=== PATIENT | male | born 1980 | race Caucasian/White ===

== ENCOUNTER 2016-11-28 20:44 | Emergency (ER) | payer OTHER ==
[~2016-11-28] VITALS: Ht 180.3 cm; Wt 113.4 kg
[~2016-11-28 20:44] MED LIST: LEVO500T59 PO
[2016-11-28 21:19] LABS: BASO # 0.1 x10^3/uL (0.0-0.2); BASO % 1 % (0-3); EOS % 2 % (0-3); HEMATOCRIT 48.8 % (39.0-53.0); LYMPH # 3.2 x10^3/uL (1.0-4.8); LYMPH % 39 % (24-48); MEAN CORPUSCULAR HEMOGLOBIN 30 pg (25-35); MEAN CORPUSCULAR HGB CONC 35 g/dL (31-37); MEAN CORPUSCULAR VOLUME 87 fL (79-100); MONO % 8 % (0-9); NEUT % 50 % (31-73); PLATELET COUNT 225 x10^3/uL (140-400); RED BLOOD COUNT 5.65 x10^6/uL (4.30-5.70); RED CELL DISTRIBUTION WIDTH 12.8 % (11.5-14.5); WHITE BLOOD COUNT 8.1 x10^3/uL (4.0-11.0)
[2016-11-28 21:25] LABS: PROTHROMBIN TIME PATIENT 12.5 SEC (11.7-14.0)
[2016-11-28] MEDS ORDERED: ASPIRIN ENTERIC COATED 325 MG TABLET.DR. PO ONE (21:30)
[2016-11-28] MEDS ORDERED: KETOROLAC 15 MG/ML VIAL. IV ONE (21:30)
[2016-11-28 21:31] LABS: CALCIUM 9.5 mg/dL (8.5-10.1); GFR 83.6; POTASSIUM 3.9 mmol/L (3.5-5.1)
[2016-11-28 21:34] LABS: ALBUMIN 4.1 g/dL (3.4-5.0); MAGNESIUM 2.3 mg/dL (1.8-2.4); TOTAL BILIRUBIN 1.1 mg/dL (0.2-1.0); TOTAL PROTEIN 8.2 g/dL (6.4-8.2)
--- NOTE | 2016-11-28 22:47 | PHYS DOC ---
Past Medical History Past Medical History: Anxiety, Hypertension, Other Additional Past Medical Histor: sleep apnea, gout Past Surgical History: No Surgical History Alcohol Use: None Drug Use: None Adult General Chief Complaint Chief Complaint: CHEST PAIN HPI HPI Patient is a 36 year old male presenting to the emergency department for evaluation of chest pain that started suddenly while he was carrying groceries. He says that it started approximately 45 minutes prior to arrival and now it is resolved and he thinks it lasted approximately 40-45 minutes. He describes the pain is sharp in his left pectoral region and he had some radiation to his left arm that he described as tightness. He said it caused him pain to take a deep breath and he could not take a full breath as he felt short of breath. He denies any nausea vomiting or diaphoresis with the pain. He says that he has hypertension but no diabetes high cholesterol and no smoking. His father had a stroke when he was in his 50s. She denies any prior cardiac risk stratification. His heart score is equal to 1. PERC score = 0. Review of Systems Review of Systems Constitutional: Denies fever or chills [] Eyes: Denies change in visual acuity, redness, or eye pain [] HENT: Denies nasal congestion or sore throat [] Respiratory: Denies cough. + shortness of breath [] Cardiovascular: + CP GI: Denies abdominal pain, nausea, vomiting, bloody stools or diarrhea [] : Denies dysuria or hematuria [] Musculoskeletal: Denies back pain or joint pain [] Integument: Denies rash or skin lesions [] Neurologic: Denies headache, focal weakness or sensory changes [] Current Medications Current Medications Current Medications Medications (Trade) Dose Ordered Sig/Dwight Start Time Stop Time Status Last Admin Dose Admin Aspirin (Ecotrin) 325 mg 1X ONCE 11/28/16 21:30 11/28/16 21:31 DC 11/28/16 21:18 325 MG Ketorolac Tromethamine (Toradol) 15 mg 1X ONCE 11/28/16 21:30 11/28/16 21:31 DC 11/28/16 21:19 15 MG Allergies Allergies Allergies Coded Allergies Type Severity Reaction Last Updated Verified Penicillins Allergy Intermediate 10/05/15 Yes Physical Exam Physical Exam Constitutional: Well developed, well nourished, no acute distress, non-toxic appearance. [] HENT: Normocephalic, atraumatic, bilateral external ears normal, oropharynx moist, no oral exudates, nose normal. [] Eyes: PERRLA, EOMI, conjunctiva normal, no discharge. [] Neck: Normal range of motion, no tenderness, supple, no stridor. [] Cardiovascular:Heart rate regular rhythm, no murmur [] Lungs & Thorax: Bilateral breath sounds clear to auscultation [] Abdomen: Bowel sounds normal, soft, no tenderness, no masses, no pulsatile masses. [] Skin: Warm, dry, no erythema, no rash. [] Back: No tenderness, no CVA tenderness. [] Extremities: No tenderness, no cyanosis, no clubbing, ROM intact, no edema. [] Neurologic: Alert and oriented X 3, normal motor function, normal sensory function, no focal deficits noted. [] Psychologic: Affect normal, judgement normal, mood normal. [] Current Patient Data Vital Signs Vital Signs Date Time Temp Pulse Resp B/P (MAP) Pulse Ox O2 Delivery O2 Flow Rate FiO2 11/28/16 21:21 74 19 149/90 (109) 98 Room Air 11/28/16 20:57 98.2 98.2 Lab Values Laboratory Tests Test 11/28/16 20:55 White Blood Count 8.1 x10^3/uL (4.0-11.0) Red Blood Count 5.65 x10^6/uL (4.30-5.70) Hemoglobin 17.0 g/dL (13.0-17.5) Hematocrit 48.8 % (39.0-53.0) Mean Corpuscular Volume 87 fL (79-100) Mean Corpuscular Hemoglobin 30 pg (25-35) Mean Corpuscular Hemoglobin Concent 35 g/dL (31-37) Red Cell Distribution Width 12.8 % (11.5-14.5) Platelet Count 225 x10^3/uL (140-400) Neutrophils (%) (Auto) 50 % (31-73) Lymphocytes (%) (Auto) 39 % (24-48) Monocytes (%) (Auto) 8 % (0-9) Eosinophils (%) (Auto) 2 % (0-3) Basophils (%) (Auto) 1 % (0-3) Neutrophils # (Auto) 4.1 x10^3uL (1.8-7.7) Lymphocytes # (Auto) 3.2 x10^3/uL (1.0-4.8) Monocytes # (Auto) 0.6 x10^3/uL (0.0-1.1) Eosinophils # (Auto) 0.2 x10^3/uL (0.0-0.7) Basophils # (Auto) 0.1 x10^3/uL (0.0-0.2) Prothrombin Time 12.5 SEC (11.7-14.0) Prothrombin Time INR 1.0 (0.8-1.1) PTT 21 SEC (24-38) L Sodium Level 140 mmol/L (136-145) Potassium Level 3.9 mmol/L (3.5-5.1) Chloride Level 105 mmol/L (98-107) Carbon Dioxide Level 30 mmol/L (21-32) Anion Gap 5 (6-14) L Blood Urea Nitrogen 10 mg/dL (8-26) Creatinine 1.0 mg/dL (0.7-1.3) Estimated GFR (Cockcroft-Gault) 83.6 BUN/Creatinine Ratio 10 (6-20) Glucose Level 103 mg/dL (70-99) H Calcium Level 9.5 mg/dL (8.5-10.1) Magnesium Level 2.3 mg/dL (1.8-2.4) Total Bilirubin 1.1 mg/dL (0.2-1.0) H Aspartate Amino Transferase (AST) 54 U/L (15-37) H Alanine Aminotransferase (ALT) 78 U/L (16-63) H Alkaline Phosphatase 89 U/L (46-116) Troponin I Quantitative < 0.017 ng/mL (0.000-0.055) CY-Mqf-O-Type Natriuretic Peptide 5 pg/mL (0-124) Total Protein 8.2 g/dL (6.4-8.2) Albumin 4.1 g/dL (3.4-5.0) Albumin/Globulin Ratio 1.0 (1.0-1.7) Laboratory Tests 11/28/16 20:55 Laboratory Tests 11/28/16 20:55 EKG EKG Sinus rhythm at 70 bpm with normal axis no obvious ST elevation or depression and normal T waves. Radiology/Procedures Radiology/Procedures Chest x-ray shows normal heart size normal mediastinum and no obvious free air pneumothorax or opacity Course & Med Decision Making Course & Med Decision Making Patient with low heart score given prescription for pain and recommended admission to the hospital. Patient refused stating that he does not want to stay in the hospital. I discussed my reasoning as to why wanted him to stay in the hospital even the limitations of the EKG and troponin in the emergency department especially the time setting. Patient verbalized understanding and accepted the risks of and disability. Patient was willing to compromise with a 3 hour repeat troponin. Repeat troponin is negative and patient has been pain-free since he arrived in the emergency department. He was told not to exert himself take an aspirin daily and to follow with PCP and/or armament installer within 72 hours and come back to the ED with any new worsening pain shortness of breath or other general concerns. Patient aware and agreeable with plan and verbalized understanding of the need for follow-up and strict ED return precautions discussed as above. Dragon Disclaimer Dragon Disclaimer This electronic medical record was generated, in whole or in part, using a voice recognition dictation system. Departure Departure Impression: Primary Impression: Chest pain Disposition: HOME, SELF-CARE Condition: STABLE Referrals: AMY GUILLERMO MD (PCP) SATISH SCHAEFER MD Patient Instructions: Chest Pain (Nonspecific) Additional Instructions: TAKE 81MG ASPIRIN DAILY. DO NOT EXERT YOURSELF UNTIL CLEARED BY PCP OR CARDIOLOGY. FOLLOW WITH PCP OR CARDIOLOGY WITHIN 72 HOURS AND COME BACK TO THE ED SOONER WITH ANY NEW OR WORSENING PAIN, SOA, OR OTHER GENERAL CONCERNS. Problem Qualifiers Primary Impression: Chest pain Chest pain type: unspecified Qualified Codes: R07.9 - Chest pain, unspecified AMY ALCOCER DO Nov 28, 2016 22:47
[2016-11-29 01:25] VITALS: BP 139/73
--- NOTE | 2016-11-29 07:45 | RAD ---
Chest radiograph 11/28/2016 11:06 PM Indication: Left-sided chest pain Comparison: Chest radiograph 05/23/2015 Technique: Single portable upright frontal view of the chest is provided. Findings: Cardiomediastinal silhouette is within normal limits. No pleural effusions, pulmonary vascular congestion or pneumothorax. The lungs are clear. Osseous structures are normal. Impression: No acute cardiopulmonary process.
--- NOTE | 2016-11-29 07:59 | EKG ---
[facility] [address] [place] [address] Test Date: 2016-11-28 Test Time: 20:49:16 Pat Name: NIDA PYLE Department: Room: Gender: M Outsole C[employer] Machine: : 1980 Requested By: AMY ALCOCER Order Number: [id number] Reading MD: Leo Juarez Measurements Intervals [place] Rate: 70 P: 0 VT: 146 QRS: -7 QRSD: 92 T: -11 QT: 380 QTc: 413 Interpretive Statements SINUS RHYTHM Electronically Signed On 12-01-2016 13:10:44 CDT by Leo Juarez
== END 2016-11-29 01:35 | disposition home or self-care (01) ==
LOC: ER 21:52
DX: R07.89 Other chest pain (principal); G47.30 Sleep apnea, unspecified; M10.9 Gout, unspecified; I10 Essential (primary) hypertension; Z88.0 Allergy status to penicillin; Z79.82 Long term (current) use of aspirin
CPT/HCPCS: 36415; 71010; 80053; 83735; 83880; 84484; 85025; 85610; 85730; 93005; 96374; 99285; J1885

== ENCOUNTER 2017-02-08 19:10 | Emergency (ER) | payer OTHER ==
[~2017-02-08] VITALS: Ht 180.3 cm; Wt 113.4 kg
[2017-02-08] MEDS ORDERED: ONDANSETRON PF 4 MG/2 ML VIAL. IV ONE (20:15)
[2017-02-08] MEDS ORDERED: IV NORMAL SALINE 1000ML BAG 1,000 ML IV ONE (20:30)
[2017-02-08] MEDS ORDERED: ONDA4TAB10 SL (20:45)
--- NOTE | 2017-02-08 20:45 | PHYS DOC ---
Past Medical History Past Medical History: Hypertension Additional Past Medical Histor: sleep apnea, gout Past Surgical History: No Surgical History Alcohol Use: None Drug Use: None Adult General Chief Complaint Chief Complaint: FLU SYMPTOM HPI HPI Patient is a 36 year old male who presents with vomiting & diarrhea. The patient reports onset of symptoms this morning with 5 episodes of vomiting & 5 episodes of diarrhea. Reports generalized cramping abdominal pain, inability to tolerate oral intake, generalized weakness. Denies fevers or chills, hematemesis, hematochezia or melena, dysuria or hematuria. Reports exposure to other family members with similar symptoms. Of hypertension, denies abdominal surgeries. PCP is Dr. Singh. Review of Systems Review of Systems Constitutional: Denies fever or chills Eyes: Denies change in visual acuity HENT: Denies nasal congestion or sore throat Respiratory: Denies cough or shortness of breath Cardiovascular: Denies chest pain or edema GI: Reports abdominal pain, nausea, vomiting, & diarrhea, denies bloody stools : Denies dysuria or hematuria Musculoskeletal: Denies back pain or joint pain Integument: Denies rash or skin lesions Neurologic: Denies headache, focal weakness or sensory changes All other systems were reviewed and found to be within normal limits, except as documented in this note. Current Medications Current Medications Current Medications Medications (Trade) Dose Ordered Sig/Dwight Start Time Stop Time Status Last Admin Dose Admin Ondansetron HCl (Zofran) 4 mg 1X ONCE 02/08/17 20:15 02/08/17 20:16 DC 02/08/17 20:18 4 MG Sodium Chloride 1,000 ml @ 1,000 mls/hr 1X ONCE 02/08/17 20:30 02/08/17 21:04 DC 02/08/17 20:10 1,000 MLS/HR Allergies Allergies Allergies Coded Allergies Type Severity Reaction Last Updated Verified Penicillins Allergy Intermediate 10/05/15 Yes Physical Exam Physical Exam Constitutional: Obese, no acute distress, non-toxic appearance. HENT: Normocephalic, atraumatic, bilateral external ears normal, oropharynx moist, nose normal. Eyes: conjunctiva normal, no discharge. Neck: supple, no stridor. Cardiovascular: RRR, no murmurs, no edema. Lungs & Thorax: LCTAB, no wheezing, no respiratory distress. Abdomen: soft, no focal abdominal tenderness with palpation, no rebound or guarding, no masses or pulsatile masses, nondistended. Skin: Warm, dry, no erythema, no rash. Back: No CVA tenderness. Extremities: No tenderness, no edema. Neurologic: Alert and oriented X 3, no focal deficits noted. Psychologic: Affect normal, judgement normal, mood normal. Current Patient Data Vital Signs Vital Signs Date Time Temp Pulse Resp B/P (MAP) Pulse Ox O2 Delivery O2 Flow Rate FiO2 02/08/17 20:56 88 135/65 (88) 93 Room Air 02/08/17 19:56 98.4 18 98.4 Lab Values Laboratory Tests Test 02/08/17 20:13 POC Hemoglobin 18.4 g/dL (14-18) H POC Hematocrit 54 % (37-52) H POC Sodium 143 mmol/L (135-145) POC Potassium 4.0 mmol/L (3.5-5.0) POC Chloride 108 mmol/L (98-110) POC Total CO2 22 mmol/L (23-32) L Anion Gap 18 mmol/L (6-14) H POC Blood Urea Nitrogen 16 mg/dL (8-26) POC Creatinine 1.1 mg/dL (0.5-1.4) Glucose Level 123 mg/dL (70-99) H POC Ionized Calcium (Mode) 1.13 mmol/L (1.13-1.32) Laboratory Tests 02/08/17 20:13 EKG EKG [] Radiology/Procedures Radiology/Procedures [] Course & Med Decision Making Course & Med Decision Making Pertinent Labs and Imaging studies reviewed. (See chart for details) The patient presents with vomiting and diarrhea. Afebrile, no focal abdominal tenderness. Gave IV fluids, Zofran, pain medication. Electrolytes show no significant abnormalities. Recommend rest, hydration with small sips of clear liquid, Zofran as needed for nausea, Tylenol or ibuprofen for pain. Follow-up with primary care physician if not improving in 2-3 days. Return to the emergency department for high fever, severe pain, uncontrolled vomiting, any otherwise worsening condition. Discharged home in stable and improved condition. [] Dragon Disclaimer Dragon Disclaimer This electronic medical record was generated, in whole or in part, using a voice recognition dictation system. Departure Departure Impression: Primary Impression: Vomiting and diarrhea Disposition: HOME, SELF-CARE Condition: STABLE Referrals: AMY SINGH MD (PCP) Patient Instructions: Nausea and Vomiting, [id number] Additional Instructions: You were seen in the emergency department today for vomiting & diarrhea. This is likely caused by a virus & should improve within 2-3 days. Please rest, drink sips of clear liquids such as gatorade, use zofran for nausea & tylenol or ibuprofen for pain/fever. Follow up with primary care in 2-3 days if not improving. Come back for severe pain, uncontrolled vomiting, any otherwise worsening condition. Scripts Ondansetron (ZOFRAN ODT) 4 Mg Tab.rapdis 1 TAB SL Q8HRS Y for NAUSEA/VOMITING, #10 TAB Prov: YISSEL DORANTES MD 02/08/17 YISSEL DORANTES MD Feb 08, 2017 20:45
[2017-02-08 20:56] VITALS: BP 135/65
== END 2017-02-08 21:03 | disposition home or self-care (01) ==
LOC: EDBD 19:10 → ER 19:10
DX: R11.10 Vomiting, unspecified (principal); R19.7 Diarrhea, unspecified; M10.9 Gout, unspecified; I10 Essential (primary) hypertension; G47.30 Sleep apnea, unspecified; Z88.0 Allergy status to penicillin
CPT/HCPCS: 36415; 80047; 85014; 85018; 96361; 96374; 99284; J2405; J7030

== ENCOUNTER 2017-07-18 16:55 | Emergency (ER) | payer OTHER ==
[2017-07-18 17:20] LABS: BILIRUBIN,URINE NEGATIVE (NEG); CLARITY,URINE CLEAR; GLUCOSE,URINE NEGATIVE (NEG); NITRITE,URINE NEGATIVE (NEG); PH,URINE 6.5; PROTEIN,URINE NEGATIVE (NEG-TRACE)
[2017-07-18 17:25] LABS: COLOR,URINE STRAW
[2017-07-18 17:26] LABS: BACTERIA,URINE 0 /HPF (0-FEW); WBC,URINE 0 /HPF (0-4)
[2017-07-18 17:27] LABS: SQUAMOUS EPITHELIAL CELL,UR OCC /LPF
[2017-07-18 17:28] LABS: ADD MAN DIFF? NO
[2017-07-18 17:36] LABS: ANION GAP 12 (6-14); BLOOD UREA NITROGEN 12 mg/dL (8-26); BUN/CREATININE RATIO 11 (6-20); CALCIUM 8.5 mg/dL (8.5-10.1); CARBON DIOXIDE 25 mmol/L (21-32); CHLORIDE 104 mmol/L (98-107); CREATININE 1.1 mg/dL (0.7-1.3); GFR 74.5; GLUCOSE 110 mg/dL (70-99); POTASSIUM 3.6 mmol/L (3.5-5.1); SODIUM 141 mmol/L (136-145)
[2017-07-18] MEDS: ONDANSETRON ODT 4 MG TAB.RAPDIS. PO (17:37)
[2017-07-18] MEDS: KETOROLAC 30 MG/ML INJ. IV (17:37)
[2017-07-18] MEDS: fentaNYL PF VIAL 100 MCG/2 ML VIAL IV (17:38)
[2017-07-18 17:40] LABS: BASO % 1 % (0-3); EOS # 0.1 x10^3/uL (0.0-0.7); EOS % 2 % (0-3); HEMATOCRIT 46.7 % (39.0-53.0); HEMOGLOBIN 16.5 g/dL (13.0-17.5); LYMPH # 1.7 x10^3/uL (1.0-4.8); LYMPH % 33 % (24-48); MEAN CORPUSCULAR HEMOGLOBIN 30 pg (25-35); MEAN CORPUSCULAR HGB CONC 35 g/dL (31-37); MEAN CORPUSCULAR VOLUME 86 fL (79-100); MONO # 0.5 x10^3/uL (0.0-1.1); MONO % 9 % (0-9); NEUT # 2.9 x10^3uL (1.8-7.7); NEUT % 55 % (31-73); PLATELET COUNT 195 x10^3/uL (140-400); RED BLOOD COUNT 5.45 x10^6/uL (4.30-5.70); WHITE BLOOD COUNT 5.2 x10^3/uL (4.0-11.0)
[2017-07-18 17:43] LABS: ALBUMIN 3.9 g/dL (3.4-5.0); ALK PHOS 90 U/L (46-116); ALT (SGPT) 88 U/L (16-63); AST (SGOT) 68 U/L (15-37); LIPASE 164 U/L (73-393); TOTAL BILIRUBIN 1.9 mg/dL (0.2-1.0); TOTAL PROTEIN 7.9 g/dL (6.4-8.2)
== END 2017-07-18 19:22 | disposition home or self-care (01) ==
LOC: ER 16:55
DX: N20.0 Calculus of kidney (principal); M10.9 Gout, unspecified; I10 Essential (primary) hypertension; Z88.0 Allergy status to penicillin
CPT/HCPCS: 36415; 74176; 80053; 81001; 83690; 85025; 96374; 96375; 99285-25; J1885; J3010; Q0162

== ENCOUNTER 2017-12-27 00:53 | Emergency (ER) | payer OTHER ==
[~2017-12-27] VITALS: Ht 180.3 cm; Wt 113.4 kg
[~2017-12-27 00:53] MED LIST changes: +CIPR500T94 PO; +HYDR-971 PO; +ONDA4TAB10 SL; +TAMS0.4C97 PO
[2017-12-27 01:20] LABS: BASO # 0.1 x10^3/uL (0.0-0.2); BASO % 1 % (0-3); EOS # 0.2 x10^3/uL (0.0-0.7); EOS % 2 % (0-3); HEMATOCRIT 48.2 % (39.0-53.0); HEMOGLOBIN 17.7 g/dL (13.0-17.5); LYMPH # 2.3 x10^3/uL (1.0-4.8); LYMPH % 33 % (24-48); MEAN CORPUSCULAR HEMOGLOBIN 32 pg (25-35); MEAN CORPUSCULAR HGB CONC 37 g/dL (31-37); MEAN CORPUSCULAR VOLUME 86 fL (79-100); MONO # 0.7 x10^3/uL (0.0-1.1); MONO % 10 % (0-9); NEUT # 3.7 x10^3uL (1.8-7.7); NEUT % 54 % (31-73); PLATELET COUNT 214 x10^3/uL (140-400); RED CELL DISTRIBUTION WIDTH 12.7 % (11.5-14.5); WHITE BLOOD COUNT 6.9 x10^3/uL (4.0-11.0)
[2017-12-27] MEDS ORDERED: IV NORMAL SALINE 1000ML BAG 1,000 ML IV ONE (01:30)
[2017-12-27] MEDS ORDERED: KETOROLAC 30 MG/ML VIAL. IV ONE (01:30)
[2017-12-27] MEDS ORDERED: ONDANSETRON PF 4 MG/2 ML VIAL. IV ONE (01:30)
[2017-12-27 01:34] LABS: CALCIUM 9.1 mg/dL (8.5-10.1); CREATININE 1.1 mg/dL (0.7-1.3); GFR 74.5; POTASSIUM 3.3 mmol/L (3.5-5.1)
[2017-12-27 01:39] LABS: TOTAL BILIRUBIN 1.3 mg/dL (0.2-1.0); TOTAL PROTEIN 7.9 g/dL (6.4-8.2)
--- NOTE | 2017-12-27 02:07 | PHYS DOC ---
Past Medical History Past Medical History: Hypertension, Other Additional Past Medical Histor: gout Past Surgical History: No Surgical History Alcohol Use: None Drug Use: None Adult General Chief Complaint Chief Complaint: FLANK PAIN HPI HPI Patient is a 37 year old male who presents with acute onset of right flank pain which began at approximately 10:30 this evening. Patient has a previous history of a left-sided kidney stone in July of last year. Patient also had nausea and vomiting associated with this. Review of Systems Review of Systems Constitutional: Denies fever or chills [] Eyes: Denies change in visual acuity, redness, or eye pain [] HENT: Denies nasal congestion or sore throat [] Respiratory: Denies cough or shortness of breath [] Cardiovascular: No additional information not addressed in HPI [] GI: Denies abdominal pain, nausea, vomiting, bloody stools or diarrhea [] : Denies dysuria or hematuria positive for flank pain [] Musculoskeletal: Denies back pain or joint pain [] Integument: Denies rash or skin lesions [] Neurologic: Denies headache, focal weakness or sensory changes [] Endocrine: Denies polyuria or polydipsia [] All other systems were reviewed and found to be within normal limits, except as documented in this note. Current Medications Current Medications Current Medications Medications (Trade) Dose Ordered Sig/[facility] Start Time Stop Time Status Last Admin Dose Admin Ketorolac Tromethamine (Toradol 30mg Vial) 30 mg 1X ONCE 12/27/17 01:30 12/27/17 01:31 DC 12/27/17 01:39 30 MG Ondansetron HCl (Zofran) 4 mg 1X ONCE 12/27/17 01:30 12/27/17 01:31 DC 12/27/17 01:39 4 MG Sodium Chloride 1,000 ml @ 1,000 mls/hr 1X ONCE 12/27/17 01:30 12/27/17 02:29 DC 12/27/17 01:39 1,000 MLS/HR Allergies Allergies Allergies Coded Allergies Type Severity Reaction Last Updated Verified Penicillins Allergy Intermediate 10/05/15 Yes Physical Exam Physical Exam Constitutional: Well developed, well nourished, no acute distress, non-toxic appearance. [] HENT: Normocephalic, atraumatic, bilateral external ears normal, oropharynx moist, no oral exudates, nose normal. [] Eyes: PERRLA, EOMI, conjunctiva normal, no discharge. [] Neck: Normal range of motion, no tenderness, supple, no stridor. [] Cardiovascular:Heart rate regular rhythm, no murmur [] Lungs & Thorax: Bilateral breath sounds clear to auscultation [] Abdomen: Bowel sounds normal, soft, no tenderness, no masses, no pulsatile masses. [] Skin: Warm, dry, no erythema, no rash. [] Back: No tenderness, right sided CVA tenderness. [] Extremities: No tenderness, no cyanosis, no clubbing, ROM intact, no edema. [] Neurologic: Alert and oriented X 3, normal motor function, normal sensory function, no focal deficits noted. [] Psychologic: Affect normal, judgement normal, mood normal. [] Current Patient Data Vital Signs Vital Signs Date Time Temp Pulse Resp B/P (MAP) Pulse Ox O2 Delivery O2 Flow Rate FiO2 12/27/17 01:02 97.9 74 22 143/66 (91) 95 Room Air 97.9 Lab Values Laboratory Tests Test 12/27/17 01:10 12/27/17 02:00 White Blood Count 6.9 x10^3/uL (4.0-11.0) Red Blood Count 5.60 x10^6/uL (4.30-5.70) Hemoglobin 17.7 g/dL (13.0-17.5) H Hematocrit 48.2 % (39.0-53.0) Mean Corpuscular Volume 86 fL (79-100) Mean Corpuscular Hemoglobin 32 pg (25-35) Mean Corpuscular Hemoglobin Concent 37 g/dL (31-37) Red Cell Distribution Width 12.7 % (11.5-14.5) Platelet Count 214 x10^3/uL (140-400) Neutrophils (%) (Auto) 54 % (31-73) Lymphocytes (%) (Auto) 33 % (24-48) Monocytes (%) (Auto) 10 % (0-9) H Eosinophils (%) (Auto) 2 % (0-3) Basophils (%) (Auto) 1 % (0-3) Neutrophils # (Auto) 3.7 x10^3uL (1.8-7.7) Lymphocytes # (Auto) 2.3 x10^3/uL (1.0-4.8) Monocytes # (Auto) 0.7 x10^3/uL (0.0-1.1) Eosinophils # (Auto) 0.2 x10^3/uL (0.0-0.7) Basophils # (Auto) 0.1 x10^3/uL (0.0-0.2) Sodium Level 141 mmol/L (136-145) Potassium Level 3.3 mmol/L (3.5-5.1) L Chloride Level 104 mmol/L (98-107) Carbon Dioxide Level 24 mmol/L (21-32) Anion Gap 13 (6-14) Blood Urea Nitrogen 12 mg/dL (8-26) Creatinine 1.1 mg/dL (0.7-1.3) Estimated GFR (Cockcroft-Gault) 74.5 BUN/Creatinine Ratio 11 (6-20) Glucose Level 139 mg/dL (70-99) H Calcium Level 9.1 mg/dL (8.5-10.1) Total Bilirubin 1.3 mg/dL (0.2-1.0) H Aspartate Amino Transferase (AST) 17 U/L (15-37) Alanine Aminotransferase (ALT) 31 U/L (16-63) Alkaline Phosphatase 85 U/L (46-116) Total Protein 7.9 g/dL (6.4-8.2) Albumin 4.0 g/dL (3.4-5.0) Albumin/Globulin Ratio 1.0 (1.0-1.7) Urine Collection Type Unknown Urine Color Yellow Urine Clarity Clear Urine pH 7.0 Urine Specific [place] 1.015 Urine Protein Negative mg/dL (NEG-TRACE) Urine Glucose (UA) 100 mg/dL (NEG) Urine Ketones (Stick) Negative mg/dL (NEG) Urine Blood Negative (NEG) Urine Nitrite Negative (NEG) Urine Bilirubin Negative (NEG) Urine Urobilinogen Dipstick 0.2 mg/dL (0.2 mg/dL) Urine Leukocyte Esterase Negative (NEG) Urine RBC Occ /HPF (0-2) Urine WBC Occ /HPF (0-4) Urine Squamous Epithelial Cells Few /LPF Urine Bacteria 0 /HPF (0-FEW) Urine Mucus Slight /LPF Laboratory Tests 12/27/17 01:10 Laboratory Tests 12/27/17 01:10 EKG EKG [] Radiology/Procedures Radiology/Procedures [facility] [address] [place] [address] IMAGING REPORT Signed PATIENT: NIDA PYLE ACCOUNT: [id number] : 1980 LOCATION: ER AGE: 37 SEX: M EXAM STATUS: REG ER ORD. PHYSICIAN: RIMA FLORES MD REASON: flank pain, hx of kidney stones PROCEDURE: CT ABDOMEN PELVIS WO CONTRAST EXAM: CT Abdomen and Pelvis without IV contrast CLINICAL HISTORY: right flank pain. COMPARISON: 07/18/2017 TECHNIQUE: Helical CT of the abdomen and pelvis without intravenous contrast. Axial, coronal and sagittal reformatted images were generated. PQRS compliance statement - One or more of the following individualized dose reduction techniques were utilized for this study: 1. Automated exposure control 2. Adjustment of the mA and/or kV according to patient size 3. Use of iterative reconstruction technique FINDINGS: Lack of intravenous contrast limits evaluation of solid organs, vasculature, and lymph nodes. Lower chest: Left lower lobe dependent opacities likely atelectasis. Abdomen and Pelvis: Liver is enlarged measuring about 21.5 cm in length. Relative hepatic hypoattenuation is consistent with hepatic steatosis. Focal fatty sparing in the gallbladder fossa. Spleen is unremarkable. Pancreas is normal. Adrenal glands are unremarkable. The kidneys are normal in size and shape. A punctate right lower pole nonobstructing renal calculus is seen. A punctate right upper pole nonobstructing renal calculus is seen. A punctate left interpolar renal calculus is seen. A 4 mm right ureterovesicular junction calculus is seen causing mild right hydronephrosis. Bladder is unremarkable. No small or large bowel dilatation. Appendix is normal. Small fat-containing periumbilical hernia is noted. Bones: Bilateral L5 pars defects are seen. No spondylolisthesis. IMPRESSION: 1. 4 mm right ureterovesicular junction calculus results in mild right hydronephrosis. 2. Punctate bilateral nonobstructing renal calculi are seen. 3. Bilateral L5 pars defects are seen without spondylolisthesis. 4. Hepatomegaly and hepatic steatosis. Electronically signed by: Jay Kaur MD (12/27/2017 2:55 AM) [facility] DICTATED and SIGNED BY: JAY KAUR MD DATE: 12/27/17 0247 [] Course & Med Decision Making Course & Med Decision Making Pertinent Labs and Imaging studies reviewed. (See chart for details) [] Dragon Disclaimer Dragon Disclaimer This electronic medical record was generated, in whole or in part, using a voice recognition dictation system. Departure Departure Impression: Primary Impression: Right kidney stone Disposition: 01 HOME, SELF-CARE Condition: STABLE Referrals: AMY GUILLERMO MD (PCP) PUJA DIAMOND MD Patient Instructions: Kidney Stones, [id number] Scripts Ondansetron (ZOFRAN ODT) 4 Mg Tab.rapdis 1 TAB SL Q8HRS, #15 TAB Prov: RIMA FLORES MD 12/27/17 Tamsulosin Hcl (FLOMAX) 0.4 Mg Cap.er.24h 1 CAP PO DAILY, #7 CAP 0 Refills Prov: RIMA FLORES MD 12/27/17 Oxycodone/Apap 5-325 (PERCOCET 5-325 MG TABLET) 1 Each Tablet 1-2 TAB PO Q4-6HRS, #40 TAB Prov: RIMA FLORES MD 12/27/17 RIMA FLORES MD Dec 27, 2017 02:07
[2017-12-27 02:20] LABS: BILIRUBIN,URINE NEGATIVE (NEG); CLARITY,URINE CLEAR; COLOR,URINE YELLOW; NITRITE,URINE NEGATIVE (NEG); PROTEIN,URINE NEGATIVE (NEG-TRACE); UROBILINOGEN,URINE 0.2 mg/dL (0.2 mg/dL)
[2017-12-27 02:30] LABS: BACTERIA,URINE 0 /HPF (0-FEW); RBC,URINE OCC /HPF (0-2); SQUAMOUS EPITHELIAL CELL,UR FEW /LPF; WBC,URINE OCC /HPF (0-4)
--- NOTE | 2017-12-27 02:58 | RAD ---
EXAM: CT Abdomen and Pelvis without IV contrast CLINICAL HISTORY: right flank pain. COMPARISON: 07/18/2017 TECHNIQUE: Helical CT of the abdomen and pelvis without intravenous contrast. Axial, coronal and sagittal reformatted images were generated. PQRS compliance statement - One or more of the following individualized dose reduction techniques were utilized for this study: 1. Automated exposure control 2. Adjustment of the mA and/or kV according to patient size 3. Use of iterative reconstruction technique FINDINGS: Lack of intravenous contrast limits evaluation of solid organs, vasculature, and lymph nodes. Lower chest: Left lower lobe dependent opacities likely atelectasis. Abdomen and Pelvis: Liver is enlarged measuring about 21.5 cm in length. Relative hepatic hypoattenuation is consistent with hepatic steatosis. Focal fatty sparing in the gallbladder fossa. Spleen is unremarkable. Pancreas is normal. Adrenal glands are unremarkable. The kidneys are normal in size and shape. A punctate right lower pole nonobstructing renal calculus is seen. A punctate right upper pole nonobstructing renal calculus is seen. A punctate left interpolar renal calculus is seen. A 4 mm right ureterovesicular junction calculus is seen causing mild right hydronephrosis. Bladder is unremarkable. No small or large bowel dilatation. Appendix is normal. Small fat-containing periumbilical hernia is noted. Bones: Bilateral L5 pars defects are seen. No spondylolisthesis. IMPRESSION: 1. 4 mm right ureterovesicular junction calculus results in mild right hydronephrosis. 2. Punctate bilateral nonobstructing renal calculi are seen. 3. Bilateral L5 pars defects are seen without spondylolisthesis. 4. Hepatomegaly and hepatic steatosis. Electronically signed by: Jay Aj MD (12/27/2017 2:55 AM) [id number]
[2017-12-27 03:00] VITALS: BP 99/46
[2017-12-27] MEDS ORDERED: ONDA4TAB10 SL (03:05)
[2017-12-27] MEDS ORDERED: TAMS0.4C97 PO (03:05)
[2017-12-27] MEDS ORDERED: OXYC-323 PO (03:05)
[2017-12-27] MEDS ORDERED: TAMSULOSIN 0.4 MG CAP.ER.24H. PO ONE (03:30)
[2017-12-27] MEDS ORDERED: ONDANSETRON ODT 4 MG TAB.RAPDIS. PO ONE (03:30)
[2017-12-27] MEDS ORDERED: oxyCODONE/APAP 5/325 1 TAB TABLET PO ONE (03:30)
== END 2017-12-27 03:39 | disposition home or self-care (01) ==
LOC: ER 00:53
DX: N20.0 Calculus of kidney (principal); R11.2 Nausea with vomiting, unspecified; M10.9 Gout, unspecified; I10 Essential (primary) hypertension; Z88.0 Allergy status to penicillin
CPT/HCPCS: 36415; 74176; 80053; 81001; 85025; 96361; 96374; 96375; 99285; J1885; J2405; J7030; Q0162